=== PATIENT | female | born 1935 | race Caucasian/White ===

== ENCOUNTER → 2017-07-18 15:26 | Outpatient (CLI) | payer MEDICARE, BC ==
[2017-07-19 12:15] LABS: IMMUNOGLOBULIN E 8 IU/mL (0-100)
[2017-07-19 13:15] LABS: IMMUNOGLOBULIN A 140 mg/dL (64-422); IMMUNOGLOBULIN G 777 mg/dL (700-1600); IMMUNOGLOBULIN M 81 mg/dL (26-217)
== END | disposition home or self-care (01) ==
LOC: D.LABREF 15:26
PROVIDERS: Internal Medicine Pulmonary Disease
DX: J45.909 Unspecified asthma, uncomplicated (principal)

== ENCOUNTER → 2017-09-03 12:52 | Outpatient (CLI) | payer MEDICARE, BC | END | disposition home or self-care (01) | LOC: D.RT 12:52 | DX: J45.909 Unspecified asthma, uncomplicated (principal); J84.9 Interstitial pulmonary disease, unspecified ==

== ENCOUNTER → 2017-12-14 10:46 | Outpatient (CLI) | payer MEDICARE, BC | END | disposition home or self-care (01) | LOC: D.CT 09:30 | DX: S43.402D Unspecified sprain of left shoulder joint, subsequent encounter (principal); X58.XXXA Exposure to other specified factors, initial encounter; Y93.89 Activity, other specified; Y92.89 Other specified places as the place of occurrence of the external cause ==

== ENCOUNTER → 2018-02-08 11:16 | Outpatient (CLI) | payer MEDICARE, BC | END | disposition home or self-care (01) | LOC: D.CT 11:16 | DX: R10.9 Unspecified abdominal pain (principal) ==

== ENCOUNTER → 2018-07-10 11:02 | Outpatient (CLI) | payer MEDICARE, BC | END | disposition home or self-care (01) | LOC: D.CT 06-17 10:00 | DX: R91.1 Solitary pulmonary nodule (principal) ==

== ENCOUNTER → 2018-09-19 15:01 | Outpatient (CLI) | payer MEDICARE, BC | END | disposition home or self-care (01) | LOC: D.CT 15:01 | DX: R10.9 Unspecified abdominal pain (principal) ==

== ENCOUNTER → 2019-03-10 10:59 | Outpatient (CLI) | payer MEDICARE, BC | END | disposition home or self-care (01) | LOC: D.CT 01-31 10:30 | PROVIDERS: ATTEND Internal Medicine Pulmonary Disease | DX: R91.1 Solitary pulmonary nodule (principal) ==